=== PATIENT | male | born 1995 | race Caucasian/White ===

== ENCOUNTER 2022-03-03 10:41 | Emergency (ER) | payer OTHER ==
[~2022-03-03] VITALS: Ht 175.3 cm; Wt 68.4 kg
[2022-03-03] MEDS ORDERED: ONDANSETRON ODT 4 MG TAB.RAPDIS PO ONE (11:30)
--- NOTE | 2022-03-03 11:47 | PHYS DOC ---
Past History Past Surgical History: Other Additional Past Surgical Histo: lymph node right groin bx (ARSALAN LEONARDO APRN) Alcohol Use: Occasionally (ARSALAN LEONARDO APRN) General Adult EDM: Chief Complaint: NAUSEA/VOMITING/DIARRHEA HPI: HPI: Patient is a 26-year-old male presents with nausea/vomiting/diarrhea. Denies fever. Patient states that symptoms started at 5 AM. Patient does report that he had multiple shots of liquor last night. Patient does not believe that is contributing to his vomiting and diarrhea. Denies taking anything at home to help with symptoms. Denies abdominal pain, chest pain, shortness of breath. denies recent exposure to illness. Denies medical history. (ARSALAN LEONARDO APRN) Review of Systems: Review of Systems: ROS At least 10 ROS systems have been reviewed and are negative except as documented in the HPI. General: Negative except as outlined in HPI above. Skin: Negative except as outlined in HPI above. HEENT: Negative except as outlined in HPI above. Neck: Negative except as outlined in HPI above. Respiratory: Negative except as outlined in HPI above.. Cardiovascular: Negative except as outlined in HPI above. Abdomen: Negative except as outlined in HPI above. : Negative except as outlined in HPI above. Back/MSK: Negative except as outlined in HPI above. Neuro: Negative except as outlined in HPI above. Psych: Negative except as outlined in HPI above. (ARSALAN LEONARDO APRN) Current Medications: Current Meds: Current Medications Medications (Trade) Dose Ordered Sig/Beverly Start Time Stop Time Status Last Admin Dose Admin Ondansetron HCl (Zofran Odt) 4 mg 1X ONCE 03/03/22 11:30 03/03/22 11:31 03/03/22 11:27 4 MG (ARSALAN LEONARDO APRN) Allergies: Allergies: Allergies Coded Allergies Type Severity Reaction Last Updated Verified No Known Drug Allergies 03/03/22 No (ARSALAN LEONARDO APRN) Physical Exam: PE: Constitutional: Well developed, well nourished, no acute distress, non-toxic appearance. [] HENT: Normocephalic, atraumatic, bilateral external ears normal, oropharynx moist, no oral exudates, nose normal. [] Eyes: PERRLA, EOMI, conjunctiva normal, no discharge. [] Neck: Normal range of motion, no tenderness, supple, no stridor. [] Cardiovascular:Heart rate regular rhythm, no murmur [] Lungs & Thorax: Bilateral breath sounds clear to auscultation [] Abdomen: Bowel sounds normal, soft, no tenderness Skin: Warm, dry, no erythema, no rash. [] Back: No tenderness, no CVA tenderness. [] Extremities: No tenderness, no cyanosis, no clubbing, ROM intact, no edema. [] Neurologic: Alert and oriented X 3, normal motor function, normal sensory function, no focal deficits noted. [] Psychologic: Affect normal, judgement normal, mood normal. [] (ARSALAN LEONARDO APRN) Current Patient Data: Vital Signs: Vital Signs Date Time Temp Pulse Resp B/P (MAP) Pulse Ox O2 Delivery O2 Flow Rate FiO2 03/03/22 11:25 118 23 113/58 (76) 98 Room Air 03/03/22 10:58 98.1 (ARSALAN LEONARDO APRN) EKG: EKG: [] (ARSALAN LEONARDO APRN) Radiology/Procedures: Radiology/Procedures: [] (ARSALAN LEONARDO APRN) Heart Score: C/O Chest Pain: No Risk Factors: Risk Factors: DM, Current or recent (<one month) smoker, HTN, HLP, family history of CAD, obesity. Risk Scores: Score 0 - 3: 2.5% MACE over next 6 weeks - Discharge Home Score 4 - 6: 20.3% MACE over next 6 weeks - Admit for Clinical Observation Score 7 - 10: 72.7% MACE over next 6 weeks - Early Invasive Strategies (ARSALAN LEONARDO APRN) Course & Med Decision Making: Course & Med Decision Making Pertinent Labs and Imaging studies reviewed. (See chart for details) [] 26-year-old male presents with nausea/vomiting/diarrhea. Afebrile. Symptoms started at 5 AM. Denies abdominal pain or recent exposure to illness. Patient does report having multiple shots of liquor last night but does not believe this is contributing to his symptoms. Patient given 4 mg Zofran. Upon reassessment. Patient's heart rate is slightly elevated in the 1 [id number]. Patient given liter bolus and 4 of Zofran. Patient states he feels much better after medication and fluids. Heart rate has decreased down to low 100s. No nausea. Patient most likely has a gastroenteritis. Sending patient home with Zofran to help with nausea and vomiting. Discussed return precautions and follow-up if symptoms have not improved with PCP. Patient verbalizes understanding of discharge instructions (ARSALAN LEONARDO APRN) Dragon Disclaimer: Dragon Disclaimer: This electronic medical record was generated, in whole or in part, using a voice recognition dictation system. (ARSALAN LEONARDO APRN) Attending Co-Sign The patient was seen and interviewed as well as examined at the bedside. The chart was reviewed. The case was discussed. Agree with the plan of care. (JONO SALINAS DO) Departure Departure: Impression: Primary Impression: Nausea vomiting and diarrhea Disposition: HOME / SELF CARE / HOMELESS Condition: STABLE Referrals: KAI MCKENZIE (PCP) Patient Instructions: Nausea and Vomiting, [id number] Additional Instructions: You are seen the emergency room for nausea and vomiting. You were given Zofran and fluids while in the ER. Your symptoms improved. I am sending you home with a prescription for Zofran as well. You can take it as needed for nausea and vomiting. Please return to the emergency room if you have worsening symptoms or concerns such as unable to keep down fluids, abdominal pain. Make sure you are drinking plenty of fluids at home to avoid dehydration. EMERGENCY DEPARTMENT GENERAL DISCHARGE INSTRUCTIONS Thank you for coming to [facility] (ED) today and trusting us with you care. We trust that you had a positivie experience in our Emergency Department. If you wish to speak to the department management, you may call the director at [phone]. YOUR FOLLOW UP INSTRUCTIONS ARE FOLLOWS: 1. Do you have a private Doctor? If you do not have a private doctor, please ask for a resource list of physicians or clinics that may be able to assist you with follow up care. 2. The Emergency Physician has interpreted your x-rays. The X-Ray specialist will also review them. If there is a change in the findings, you will be notified in 48 hours when at all possible. 3. A lab test or culture has been done, your results will be reviewed and you will be notified if you need a change in treatment. ADDITIONAL INSTRUCTIONS AND INFORMATION: 1. Your care today has been supervised by a physician who is specially trained in emergency care. Many problems require more than one evaluation for a complete diagnosis and treatment. We recommend that you schedule your follow up appointment as recommended to ensure complete treatment of you illness or injury. If you are unable to obtain follow up care and continue to have a problem, or if your condition worsens, we recommend that you return to the ED. 2. We are not able to safely determine your condition over the phone nor are we able to give sound medical advice over the phone. For these safety reasons, if you call for medical advice we will ask you to come to the ED for further evaluation. 3. If you have any questions regarding these discharge instructions please call the ED at [phone]. SAFETY INFORMATION: In the interest of safety, wellness, and injury prevention; we encourage you to wear your sealbelt, if you smoke; quite smoking, and we encourage family to use a protective helmet for bicycling and other sporting events that present an increased risk for head injury. IF YOUR SYMPTOMS WORSEN OR NEW SYMPTOMS DEVELOP, OR YOU HAVE CONCERNS ABOUT YOUR CONDITION; OR IF YOUR CONDITION WORSENS WHILE YOU ARE WAITING FOR YOUR FOLLOW UP APPOINTMENT; EITHER CONTACT YOUR PRIMARY CARE DOCTOR, THE PHYSICIAN WHOSE NAME AND NUMBER YOU WERE GIVEN, OR RETURN TO THE ED IMMEDIATELY. Scripts Ondansetron (ONDANSETRON ODT) 4 Mg Tab.rapdis 4 MG PO PRN Q8HRS PRN for NAUSEA for 7 Days, #21 TAB Prov: ARSALAN LEONARDO APRN 03/03/22 ARSALAN LEONARDO APRN Mar 03, 2022 11:47 JONO SALINAS DO Mar 06, 2022 10:22
[2022-03-03] MEDS ORDERED: ONDANSETRON PF 4 MG/2 ML VIAL. ONE (12:14)
[2022-03-03] MEDS ORDERED: IV NORMAL SALINE 1,000ML 1,000 ML IV ONE (12:30)
[2022-03-03] MEDS ORDERED: ONDANSETRON PF 4 MG/2 ML VIAL. IVP ONE (12:30)
[2022-03-03 13:48] VITALS: BP 113/73
[2022-03-03] MEDS ORDERED: ONDA4TAB12 PO (13:49)
== END 2022-03-03 14:25 | disposition home or self-care (01) ==
LOC: ER 10:41
DX: R11.2 Nausea with vomiting, unspecified (principal); R19.7 Diarrhea, unspecified
CPT/HCPCS: 96361; 96374; 99283; J2405; J7030; Q0162